=== PATIENT | male | born 1990 | race Asian ===

== ENCOUNTER 2022-09-01 08:00 | Outpatient (CLI) | payer BC | END 2022-09-01 08:01 | disposition home or self-care (01) | LOC: PET 08:00 | PROVIDERS: ATTEND Specialist | DX: R59.1 Generalized enlarged lymph nodes (principal) | CPT/HCPCS: 78815; A9552 ==

== ENCOUNTER 2022-09-03 09:03 | Day surgery (SDC) | payer BC ==
[2022-09-02 10:33] VITALS: BMI 23.6
[2022-09-03] MEDS ORDERED: Bupivacaine HCl 0.5%/Epinephrine 1:200,000/PF 30 ml Vial ONE (11:59)
[2022-09-03] MEDS ORDERED: fentaNYL Citrate/PF 100 MCG/2 ML SYRINGE ONE ×2 (12:03→12:42)
[2022-09-03] MEDS ORDERED: Dexamethasone 20 MG/5 ML VIAL ONE (12:15)
[2022-09-03] MEDS ORDERED: PROPOFOL 200 MG/20 ML VIAL ONE (12:15)
[2022-09-03] MEDS ORDERED: Ondansetron PF 4 MG/2 ML Vial ONE ×2 (12:15→12:42)
[2022-09-03] MEDS ORDERED: HYDROcodone/Acetaminophen 5/325 mg Tablet ONE (14:13)
== END 2022-09-03 14:46 | disposition home or self-care (01) ==
LOC: SDC 09:03
PROVIDERS: ATTEND Specialist
PROC: 0JB40ZX Excision of Right Neck Subcutaneous Tissue and Fascia, Open Approach, Diagnostic (ICD-10-PCS; principal; 2022-09-03)
DX: M79.89 Other specified soft tissue disorders (principal); I96 Gangrene, not elsewhere classified; Z91.013 Allergy to seafood; Z91.041 Radiographic dye allergy status
CPT/HCPCS: 87070; 87116; 87205; 87206; 88184; 88305; 88312; 88341; 88342; J1100; J2405; J2704

== ENCOUNTER 2022-09-17 06:33 | Day surgery (SDC) | payer BC, OTHER ==
[2022-09-16 10:55] VITALS: BMI 23.6
[2022-09-17] MEDS ORDERED: Lidocaine 1% (PF) 30 ML VIAL ONE (08:36)
[2022-09-17] MEDS ORDERED: EPINEPHrine 1 MG/ML AMP ONE (08:36)
[2022-09-17] MEDS ORDERED: fentaNYL PF 100 MCG/2 ML SYRINGE ONE (08:43)
[2022-09-17] MEDS ORDERED: PROPOFOL 200 MG/20 ML VIAL ONE (09:02)
[2022-09-17] MEDS ORDERED: Ondansetron PF 4 MG/2 ML Vial ONE (09:02)
[2022-09-17] MEDS ORDERED: HYDROcodone/Acetaminophen 5/325 mg Tablet ONE (11:07)
== END 2022-09-17 11:24 | disposition home or self-care (01) ==
LOC: SDC 06:33
PROVIDERS: ATTEND Specialist
PROC: 0J940ZZ Drainage of Right Neck Subcutaneous Tissue and Fascia, Open Approach (ICD-10-PCS; principal; 2022-09-17)
DX: L02.11 Cutaneous abscess of neck (principal); I96 Gangrene, not elsewhere classified; Z79.2 Long term (current) use of antibiotics; Z91.013 Allergy to seafood; Z91.041 Radiographic dye allergy status
CPT/HCPCS: 87070; 87076; 87116; 87205; 87206; 88184; 88304; 88312; J0171; J2001; J2405; J2704